=== PATIENT | female | born 1965 ===

== ENCOUNTER 2019-04-07 17:11 | Emergency (ER) | payer BC, OTHER ==
[2019-04-07 17:36] VITALS: BP 130/77
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
--- NOTE | 2019-04-08 14:03 | UC ---
- Progress Note Progress Note: Radiologist interpretation of her right forearm x-ray from April 07, 2019 comes back as soft tissue swelling and no fracture. Provider interpretation same date is no fracture therefore there is no discrepancy. Course/Dx - Diagnoses Provider Diagnoses: Contusion of lower arm, right Discharge - Sign-Out/Discharge Documenting (check all that apply): Patient Departure All imaging exams completed and their final reports reviewed: Yes - Discharge Plan Condition: Stable Disposition: HOME Patient Education Materials: Contusion in Adults (ED) Forms: *Work Release Referrals: Familia Lagos MD [Primary Care Provider] - 1 Week Additional Instructions: -I do not see any fracture on the xray. It will be read officialy in the morning by the radiologist. You should get a call from us if there is any discrepancy in the interpretation. -rest, ice. The sling will be helpful for yo uto rest it when it becomes sore/ fatigued. - Billing Disposition and Condition Condition: STABLE Disposition: Home
== END 2019-04-07 18:37 | disposition home or self-care (01) ==
LOC: UCCORT 17:11
DX: S50.11XA Contusion of right forearm, initial encounter (principal); Y04.8XXA Assault by other bodily force, initial encounter; Y92.9 Unspecified place or not applicable; E78.5 Hyperlipidemia, unspecified; I10 Essential (primary) hypertension; F17.210 Nicotine dependence, cigarettes, uncomplicated
CPT/HCPCS: 99212; G0463